=== PATIENT | male | born 1945 | race Caucasian/White ===

== ENCOUNTER 2017-03-09 17:00 | Inpatient (IN) | payer MEDICARE, OTHER ==
[~2017-03-09] VITALS: Ht 170.2 cm; Wt 82.1 kg
[~2017-03-09 17:00] MED LIST: ASPI325T PO; METF500T4 PO; SITA25 PO
[2017-03-09 19:00] VITALS: BP 151/89
[2017-03-09] MEDS ORDERED: DOCUSATE SODIUM 283 MG/5 ML MINI-ENEMA PR PRN (19:00)
[2017-03-09] MEDS ORDERED: DEXTROSE 50%-WATER 25 GM/50 ML SYRINGE IVP PRN ×2 (19:00→22:45)
[2017-03-09 20:24] LABS: ADD UA MICROSCOPIC YES; APPEARANCE,URINE CLEAR (CLEAR); GLUCOSE, URINE (UA) >=1000 mg/dL (NEGATIVE); KETONES,URINE NEGATIVE (NEGATIVE); LEUKOCYTE ESTERASE ,URINE NEGATIVE (NEGATIVE); OCCULT BLOOD,URINE NEGATIVE (NEGATIVE); PH,URINE 5.5 (5.0-8.0); PROTEIN,URINE NEGATIVE (NEGATIVE)
[2017-03-09 20:29] LABS: RBC,URINE 0-2 /HPF (0-2); SQUAMOUS EPITHELIAL CELL,UR Rare /LPF (None Seen); WBC,URINE 0-2 /HPF (0-5)
[2017-03-09] MEDS: SENNA 187 MG TABLET PO SCH (21:00)
[2017-03-09] MEDS: DOCUSATE SODIUM 250 MG CAPSULE PO SCH (21:00)
[2017-03-09] MEDS: ATORVASTATIN CALCIUM 20 MG TABLET PO SCH (21:04)
[2017-03-09] MEDS: INSULIN ASPART 100 UNITS/ML SQ PRN (21:09)
[2017-03-09 21:42] LABS: GLUCOSE COMMENT 1 Received Meds; GLUCOSE,POINT OF CARE 202 MG/DL (70-110)
[2017-03-09] MEDS ORDERED: PNEUMOCOCCAL VACCINE POLYVALENT 0.5 ML VIAL [PPSV23] IM ONE (23:15)
[2017-03-10] VITALS: BP 133/80
[2017-03-10 06:03] LABS: GLUCOSE,POINT OF CARE 160 MG/DL (70-110)
[2017-03-10] MEDS: INSULIN ASPART 100 UNITS/ML SQ SCH ×4 (06:30→16:30)
[2017-03-10 07:23] LABS: BASOPHILS % (AUTO) 0.4 % (0.0-2.0); EOSINOPHILS % (AUTO) 3.6 % (1.0-6.0); HEMATOCRIT 40.1 % (41-53); LYMPHOCYTES # (AUTO) 1.6 K/uL (1.0-4.8); LYMPHOCYTES % (AUTO) 25.4 % (22.0-44.0); MEAN CORPUSCULAR HEMOGLOBIN 30.7 pg (26.0-34.0); MEAN CORPUSCULAR HGB CONC 34.8 G/dL (31.0-37.0); MEAN CORPUSCULAR VOLUME 88 fL (80-100); MONOCYTES # (AUTO) 0.5 K/uL (0.1-1.0); MONOCYTES % (AUTO) 8.5 % (2.0-9.0); NEUTROPHILS # (AUTO) 3.9 K/uL (1.8-7.7); NEUTROPHILS % (AUTO) 62.1 % (40.0-70.0); PLATELET COUNT (AUTO) 157 K/uL (150-450); RED BLOOD CELL COUNT(AUTO) 4.55 MIL/uL (4.50-5.90); RED CELL DISTRIBUTION WIDTH 13.2 % (11.5-14.5); WHITE BLOOD COUNT (AUTO) 6.4 K/uL (4.5-11.0)
[2017-03-10 07:45] VITALS: BP 113/67
[2017-03-10 07:45] LABS: ALANINE AMINOTRANSFERASE 26 U/L (12-78); ALBUMIN 3.7 g/dL (3.4-5.0); ANION GAP 9 mmol/L (8-16); ASPARTATE AMINOTRANSFERASE 14 U/L (15-37); BILIRUBIN,TOTAL 0.7 mg/dL (0.1-1.0); CARBON DIOXIDE 25 mmol/L (22-29); CHLORIDE 102 mmol/L (98-107); CREATININE 0.99 mg/dL (0.60-1.30); GLOMERULAR FILTR. RATE CALC > 60 mL/min (>60); POTASSIUM 3.8 mmol/L (3.5-5.1); SODIUM SERUM 136 mmol/L (136-145); TOTAL PROTEIN, SERUM 7.1 g/dL (6.4-8.2); UREA NITROGEN, BLOOD 16 mg/dL (7-18)
[2017-03-10] MEDS: ASPIRIN 81 MG CHEWABLE TABLET PO SCH (09:27)
[2017-03-10] MEDS: ACETAMINOPHEN 325 MG TABLET PO PRN (11:36)
[2017-03-10 14:27] LABS: GLUCOSE,POINT OF CARE 179 MG/DL (70-110)
[2017-03-10 15:00] VITALS: BP 104/88
[2017-03-10] MEDS: ENOXAPARIN SODIUM 40 MG/0.4 ML PF SYRINGE SQ SCH (16:21)
[2017-03-10] MEDS: INSULIN ASPART 100 UNITS/ML SQ PRN (18:46)
[2017-03-10] MEDS: ATORVASTATIN CALCIUM 20 MG TABLET PO SCH (20:40)
[2017-03-10] MEDS: DOCUSATE SODIUM 250 MG CAPSULE PO SCH (20:40)
[2017-03-10] MEDS: SENNA 187 MG TABLET PO SCH (20:40)
[2017-03-10] MEDS ORDERED: INSULIN ASPART 100 UNITS/ML SQ SCH (21:00)
[2017-03-11] MEDS ORDERED: ATOR40TA28 PO (00:52)
[2017-03-11] MEDS ORDERED: SITA100 PO (00:52)
[2017-03-11] MEDS ORDERED: METO50 PO (00:52)
[2017-03-11] MEDS ORDERED: TURMERIC CURCUMIN PO (00:52)
[2017-03-11 01:00] VITALS: BP 135/74
[2017-03-11] MEDS: INSULIN ASPART 100 UNITS/ML SQ SCH ×2 (07:00→11:30)
[2017-03-11 07:55] VITALS: BP 133/76
[2017-03-11] MEDS: ASPIRIN 81 MG CHEWABLE TABLET PO SCH (08:08)
[2017-03-11] MEDS: ENOXAPARIN SODIUM 40 MG/0.4 ML PF SYRINGE SQ SCH (08:09)
[2017-03-11] MEDS: INSULIN ASPART 100 UNITS/ML SQ PRN ×4 (08:18→21:52)
[2017-03-11] MEDS: ACETAMINOPHEN 325 MG TABLET PO PRN (08:23)
[2017-03-11 10:51] LABS: GLUCOSE COMMENT 1 Received Meds; GLUCOSE,POINT OF CARE 202 MG/DL (70-110)
[2017-03-11 10:55] LABS: GLUCOSE COMMENT 1 Received Meds; GLUCOSE,POINT OF CARE 240 MG/DL (70-110)
[2017-03-11 11:01] LABS: GLUCOSE,POINT OF CARE 173 MG/DL (70-110)
[2017-03-11 12:22] LABS: GLUCOSE,POINT OF CARE 219 MG/DL (70-110)
[2017-03-11] MEDS ORDERED: DEXTROSE 50%-WATER 25 GM/50 ML SYRINGE IVP PRN (13:30)
[2017-03-11 15:00] VITALS: BP 123/80
[2017-03-11] MEDS: MetFORMIN HCL 500 MG TABLET PO SCH (18:24)
[2017-03-11] MEDS: SENNA 187 MG TABLET PO SCH ×2 (21:00→21:42)
[2017-03-11] MEDS: DOCUSATE SODIUM 250 MG CAPSULE PO SCH (21:42)
[2017-03-11] MEDS: ATORVASTATIN CALCIUM 20 MG TABLET PO SCH (21:42)
[2017-03-11 21:43] LABS: GLUCOSE,POINT OF CARE 200 MG/DL (70-110)
[2017-03-11 22:11] LABS: GLUCOSE,POINT OF CARE 166 MG/DL (70-110)
[2017-03-11 23:39] VITALS: BP 133/76
[2017-03-12 06:17] LABS: GLUCOSE,POINT OF CARE 165 MG/DL (70-110)
[2017-03-12] MEDS: ACETAMINOPHEN 325 MG TABLET PO PRN (07:57)
[2017-03-12] MEDS: ENOXAPARIN SODIUM 40 MG/0.4 ML PF SYRINGE SQ SCH (07:57)
[2017-03-12] MEDS: ASPIRIN 81 MG CHEWABLE TABLET PO SCH (07:58)
[2017-03-12] MEDS: SitaGLIPtin PHOSPHATE 50 MG TABLET PO SCH (07:58)
[2017-03-12] MEDS: MetFORMIN HCL 500 MG TABLET PO SCH ×2 (07:58→17:46)
[2017-03-12] MEDS: INSULIN ASPART 100 UNITS/ML SQ PRN ×4 (08:05→20:21)
[2017-03-12 08:10] VITALS: BP 119/67
[2017-03-12 12:28] LABS: GLUCOSE COMMENT 1 Received Meds; GLUCOSE,POINT OF CARE 168 MG/DL (70-110)
[2017-03-12 16:05] VITALS: BP 136/73
[2017-03-12 18:17] LABS: GLUCOSE,POINT OF CARE 169 MG/DL (70-110)
[2017-03-12] MEDS: ATORVASTATIN CALCIUM 20 MG TABLET PO SCH (20:17)
[2017-03-12] MEDS: DOCUSATE SODIUM 250 MG CAPSULE PO SCH (20:23)
[2017-03-12 22:13] LABS: GLUCOSE,POINT OF CARE 203 MG/DL (70-110)
[2017-03-12 23:00] VITALS: BP 134/76
[2017-03-13 06:13] LABS: GLUCOSE,POINT OF CARE 173 MG/DL (70-110)
[2017-03-13 07:36] VITALS: BP 125/73
[2017-03-13] MEDS: MetFORMIN HCL 500 MG TABLET PO SCH ×2 (07:39→17:36)
[2017-03-13] MEDS: ASPIRIN 81 MG CHEWABLE TABLET PO SCH (07:57)
[2017-03-13] MEDS: SitaGLIPtin PHOSPHATE 50 MG TABLET PO SCH (07:57)
[2017-03-13] MEDS: ENOXAPARIN SODIUM 40 MG/0.4 ML PF SYRINGE SQ SCH (07:57)
[2017-03-13] MEDS: INSULIN ASPART 100 UNITS/ML SQ PRN ×3 (08:02→20:41)
[2017-03-13 12:37] LABS: GLUCOSE,POINT OF CARE 140 MG/DL (70-110)
[2017-03-13 15:25] VITALS: BP 130/71
[2017-03-13 16:58] LABS: GLUCOSE,POINT OF CARE 161 MG/DL (70-110)
[2017-03-13] MEDS: DOCUSATE SODIUM 250 MG CAPSULE PO SCH ×2 (20:35→20:41)
[2017-03-13] MEDS: ATORVASTATIN CALCIUM 20 MG TABLET PO SCH (20:35)
[2017-03-13 21:02] LABS: GLUCOSE COMMENT 1 Received Meds; GLUCOSE,POINT OF CARE 190 MG/DL (70-110)
[2017-03-14 00:09] VITALS: BP 128/80
[2017-03-14 05:52] LABS: GLUCOSE,POINT OF CARE 150 MG/DL (70-110)
[2017-03-14 07:51] VITALS: BP 132/82
[2017-03-14] MEDS: ASPIRIN 81 MG CHEWABLE TABLET PO SCH (08:04)
[2017-03-14] MEDS: MetFORMIN HCL 500 MG TABLET PO SCH ×2 (08:04→17:07)
[2017-03-14] MEDS: ENOXAPARIN SODIUM 40 MG/0.4 ML PF SYRINGE SQ SCH (08:05)
[2017-03-14] MEDS: SitaGLIPtin PHOSPHATE 50 MG TABLET PO SCH (08:05)
[2017-03-14] MEDS: INSULIN ASPART 100 UNITS/ML SQ PRN ×3 (08:08→20:58)
[2017-03-14 14:02] LABS: GLUCOSE,POINT OF CARE 117 MG/DL (70-110)
[2017-03-14 15:41] VITALS: BP 125/65
[2017-03-14] MEDS: DOCUSATE SODIUM 250 MG CAPSULE PO SCH ×3 (20:51→21:00)
[2017-03-14] MEDS: ATORVASTATIN CALCIUM 20 MG TABLET PO SCH (20:51)
[2017-03-14 23:02] LABS: GLUCOSE COMMENT 1 Received Meds; GLUCOSE,POINT OF CARE 170 MG/DL (70-110)
[2017-03-14 23:02] LABS: GLUCOSE COMMENT 1 Received Meds; GLUCOSE,POINT OF CARE 148 MG/DL (70-110)
[2017-03-15 00:05] VITALS: BP 133/77
[2017-03-15 06:02] LABS: GLUCOSE,POINT OF CARE 128 MG/DL (70-110)
[2017-03-15 07:05] VITALS: BP 129/78
[2017-03-15] MEDS: MetFORMIN HCL 500 MG TABLET PO SCH ×2 (07:28→16:51)
[2017-03-15] MEDS: ASPIRIN 81 MG CHEWABLE TABLET PO SCH (08:37)
[2017-03-15] MEDS: SitaGLIPtin PHOSPHATE 50 MG TABLET PO SCH (08:37)
[2017-03-15] MEDS: ENOXAPARIN SODIUM 40 MG/0.4 ML PF SYRINGE SQ SCH (08:37)
[2017-03-15] MEDS: INSULIN ASPART 100 UNITS/ML SQ PRN ×2 (12:50→17:56)
[2017-03-15 12:52] LABS: GLUCOSE,POINT OF CARE 163 MG/DL (70-110)
[2017-03-15 15:00] VITALS: BP 113/67
[2017-03-15 17:17] LABS: GLUCOSE COMMENT 1 Received Meds; GLUCOSE,POINT OF CARE 192 MG/DL (70-110)
[2017-03-15] MEDS: ATORVASTATIN CALCIUM 20 MG TABLET PO SCH (20:21)
[2017-03-15] MEDS: DOCUSATE SODIUM 250 MG CAPSULE PO SCH (20:21)
[2017-03-15 20:32] LABS: GLUCOSE,POINT OF CARE 135 MG/DL (70-110)
[2017-03-16 06:15] VITALS: BP 139/76
[2017-03-16 06:22] LABS: GLUCOSE,POINT OF CARE 149 MG/DL (70-110)
[2017-03-16 07:30] VITALS: BP 136/84
[2017-03-16] MEDS: MetFORMIN HCL 500 MG TABLET PO SCH ×2 (08:06→17:24)
[2017-03-16] MEDS: SitaGLIPtin PHOSPHATE 50 MG TABLET PO SCH (08:06)
[2017-03-16] MEDS: ENOXAPARIN SODIUM 40 MG/0.4 ML PF SYRINGE SQ SCH (08:06)
[2017-03-16] MEDS: ASPIRIN 81 MG CHEWABLE TABLET PO SCH (08:06)
[2017-03-16] MEDS: INSULIN ASPART 100 UNITS/ML SQ PRN ×3 (08:13→21:09)
[2017-03-16 12:46] LABS: GLUCOSE,POINT OF CARE 122 MG/DL (70-110)
[2017-03-16 15:53] VITALS: BP 139/74
[2017-03-16 18:52] LABS: GLUCOSE COMMENT 1 Received Meds; GLUCOSE,POINT OF CARE 194 MG/DL (70-110)
[2017-03-16] MEDS: DOCUSATE SODIUM 250 MG CAPSULE PO SCH (21:00)
[2017-03-16] MEDS: ATORVASTATIN CALCIUM 20 MG TABLET PO SCH (21:05)
[2017-03-16 21:38] LABS: GLUCOSE COMMENT 1 Received Meds; GLUCOSE,POINT OF CARE 154 MG/DL (70-110)
[2017-03-16 23:26] VITALS: BP 140/82
[2017-03-17 06:18] LABS: GLUCOSE,POINT OF CARE 156 MG/DL (70-110)
[2017-03-17 07:29] VITALS: BP 127/74
[2017-03-17] MEDS: MetFORMIN HCL 500 MG TABLET PO SCH ×2 (08:33→17:55)
[2017-03-17] MEDS: SitaGLIPtin PHOSPHATE 50 MG TABLET PO SCH (08:33)
[2017-03-17] MEDS: ENOXAPARIN SODIUM 40 MG/0.4 ML PF SYRINGE SQ SCH (08:33)
[2017-03-17] MEDS: ASPIRIN 81 MG CHEWABLE TABLET PO SCH (08:33)
[2017-03-17] MEDS: INSULIN ASPART 100 UNITS/ML SQ PRN ×3 (09:27→20:56)
[2017-03-17 12:27] LABS: GLUCOSE,POINT OF CARE 130 MG/DL (70-110)
[2017-03-17 16:10] VITALS: BP 121/69
[2017-03-17 17:47] LABS: GLUCOSE,POINT OF CARE 166 MG/DL (70-110)
[2017-03-17] MEDS: DOCUSATE SODIUM 250 MG CAPSULE PO SCH ×2 (20:54→21:00)
[2017-03-17] MEDS: ATORVASTATIN CALCIUM 20 MG TABLET PO SCH (20:54)
[2017-03-17 21:37] LABS: GLUCOSE,POINT OF CARE 147 MG/DL (70-110)
[2017-03-18 00:35] VITALS: BP 108/63
[2017-03-18 06:27] LABS: GLUCOSE,POINT OF CARE 144 MG/DL (70-110)
[2017-03-18 07:34] VITALS: BP 141/85
[2017-03-18] MEDS: SitaGLIPtin PHOSPHATE 50 MG TABLET PO SCH (08:15)
[2017-03-18] MEDS: MetFORMIN HCL 500 MG TABLET PO SCH ×2 (08:15→17:54)
[2017-03-18] MEDS: ENOXAPARIN SODIUM 40 MG/0.4 ML PF SYRINGE SQ SCH (08:15)
[2017-03-18] MEDS: ASPIRIN 81 MG CHEWABLE TABLET PO SCH (08:15)
[2017-03-18] MEDS: INSULIN ASPART 100 UNITS/ML SQ PRN ×3 (08:16→20:30)
[2017-03-18 12:18] LABS: GLUCOSE,POINT OF CARE 124 MG/DL (70-110)
[2017-03-18] MEDS: TURMERIC CURCUMIN 500 MG PO SCH ×2 (12:35→20:28)
[2017-03-18] MEDS: OCUSIGHT PO SCH (12:36)
[2017-03-18] MEDS: CENTRUM SILVER TABLET PO SCH (12:36)
[2017-03-18 15:00] VITALS: BP 134/68
[2017-03-18 17:33] LABS: GLUCOSE COMMENT 1 Received Meds; GLUCOSE,POINT OF CARE 199 MG/DL (70-110)
[2017-03-18] MEDS: ATORVASTATIN CALCIUM 20 MG TABLET PO SCH (20:28)
[2017-03-18] MEDS: DOCUSATE SODIUM 250 MG CAPSULE PO SCH (20:30)
[2017-03-18 21:12] LABS: GLUCOSE,POINT OF CARE 161 MG/DL (70-110)
[2017-03-19 05:00] VITALS: BP 131/69
[2017-03-19 05:42] LABS: GLUCOSE,POINT OF CARE 153 MG/DL (70-110)
[2017-03-19 07:53] VITALS: BP 127/77
[2017-03-19] MEDS: SitaGLIPtin PHOSPHATE 50 MG TABLET PO SCH (08:01)
[2017-03-19] MEDS: CENTRUM SILVER TABLET PO SCH (08:01)
[2017-03-19] MEDS: TURMERIC CURCUMIN 500 MG PO SCH ×2 (08:01→20:16)
[2017-03-19] MEDS: OCUSIGHT PO SCH (08:01)
[2017-03-19] MEDS: ENOXAPARIN SODIUM 40 MG/0.4 ML PF SYRINGE SQ SCH (08:02)
[2017-03-19] MEDS: MetFORMIN HCL 500 MG TABLET PO SCH ×2 (08:02→16:03)
[2017-03-19] MEDS: ASPIRIN 81 MG CHEWABLE TABLET PO SCH (08:02)
[2017-03-19] MEDS ORDERED: CARB200T5 PO (10:08)
[2017-03-19] MEDS: INSULIN ASPART 100 UNITS/ML SQ PRN ×3 (12:29→20:20)
[2017-03-19 15:00] VITALS: BP 122/71
[2017-03-19 17:07] LABS: GLUCOSE COMMENT 1 Received Meds; GLUCOSE,POINT OF CARE 177 MG/DL (70-110)
[2017-03-19] MEDS ORDERED: *NON-FORMULARY MED [ENTER DRUG, DOSE, FREQ IN COMMENTS] CLINICAL ONE ×2 (19:15)
[2017-03-19] MEDS ORDERED: TURM500C3 PO (19:21)
[2017-03-19] MEDS: ATORVASTATIN CALCIUM 20 MG TABLET PO SCH (20:16)
[2017-03-19 21:22] LABS: GLUCOSE COMMENT 1 Received Meds; GLUCOSE,POINT OF CARE 201 MG/DL (70-110)
[2017-03-20 05:24] VITALS: BP 136/74
[2017-03-20] MEDS: CARBAMAZEPINE 200 MG PO PRN (05:42)
[2017-03-20 07:02] LABS: GLUCOSE COMMENT 1 Received Meds; GLUCOSE,POINT OF CARE 145 MG/DL (70-110)
[2017-03-20 07:02] LABS: GLUCOSE,POINT OF CARE 174 MG/DL (70-110)
[2017-03-20 07:40] VITALS: BP 128/71
[2017-03-20] MEDS: TURMERIC CURCUMIN 500 MG PO SCH ×2 (08:06→20:00)
[2017-03-20] MEDS: MetFORMIN HCL 500 MG TABLET PO SCH ×2 (08:06→17:17)
[2017-03-20] MEDS: SitaGLIPtin PHOSPHATE 50 MG TABLET PO SCH (08:06)
[2017-03-20] MEDS: ASPIRIN 81 MG CHEWABLE TABLET PO SCH (08:06)
[2017-03-20] MEDS: ENOXAPARIN SODIUM 40 MG/0.4 ML PF SYRINGE SQ SCH (08:06)
[2017-03-20] MEDS: OCUSIGHT PO SCH (08:06)
[2017-03-20] MEDS: CENTRUM SILVER TABLET PO SCH (08:06)
[2017-03-20] MEDS: INSULIN ASPART 100 UNITS/ML SQ PRN ×3 (08:16→20:50)
[2017-03-20 12:38] LABS: GLUCOSE COMMENT 1 Received Meds; GLUCOSE,POINT OF CARE 181 MG/DL (70-110)
[2017-03-20 15:30] VITALS: BP 135/82
[2017-03-20 18:07] LABS: GLUCOSE,POINT OF CARE 117 MG/DL (70-110)
[2017-03-20] MEDS ORDERED: CARB200T6 PO (19:55)
[2017-03-20] MEDS: ATORVASTATIN CALCIUM 20 MG TABLET PO SCH (20:01)
[2017-03-20 20:17] LABS: GLUCOSE COMMENT 1 Received Meds; GLUCOSE,POINT OF CARE 188 MG/DL (70-110)
[2017-03-21 05:30] VITALS: BP 129/69
[2017-03-21 06:07] LABS: GLUCOSE,POINT OF CARE 151 MG/DL (70-110)
[2017-03-21 07:04] VITALS: BP 128/74
[2017-03-21] MEDS: MetFORMIN HCL 500 MG TABLET PO SCH ×2 (07:12→17:52)
[2017-03-21] MEDS: INSULIN ASPART 100 UNITS/ML SQ PRN ×4 (08:35→20:24)
[2017-03-21] MEDS: TURMERIC CURCUMIN 500 MG PO SCH ×2 (08:36→20:15)
[2017-03-21] MEDS: CENTRUM SILVER TABLET PO SCH (08:36)
[2017-03-21] MEDS: OCUSIGHT PO SCH (08:36)
[2017-03-21] MEDS: ENOXAPARIN SODIUM 40 MG/0.4 ML PF SYRINGE SQ SCH (08:36)
[2017-03-21] MEDS: SitaGLIPtin PHOSPHATE 50 MG TABLET PO SCH (08:36)
[2017-03-21] MEDS: ASPIRIN 81 MG CHEWABLE TABLET PO SCH (08:37)
[2017-03-21 12:23] LABS: GLUCOSE,POINT OF CARE 147 MG/DL (70-110)
[2017-03-21 16:45] VITALS: BP 137/74
[2017-03-21] MEDS: ATORVASTATIN CALCIUM 20 MG TABLET PO SCH (20:15)
[2017-03-21 21:17] LABS: GLUCOSE,POINT OF CARE 194 MG/DL (70-110)
[2017-03-21 21:17] LABS: GLUCOSE,POINT OF CARE 165 MG/DL (70-110)
[2017-03-22 06:00] VITALS: BP 128/73
[2017-03-22 06:32] LABS: GLUCOSE,POINT OF CARE 144 MG/DL (70-110)
[2017-03-22 07:30] VITALS: BP 136/80
[2017-03-22] MEDS: MetFORMIN HCL 500 MG TABLET PO SCH ×2 (08:13→17:28)
[2017-03-22] MEDS: CENTRUM SILVER TABLET PO SCH (08:13)
[2017-03-22] MEDS: OCUSIGHT PO SCH (08:13)
[2017-03-22] MEDS: TURMERIC CURCUMIN 500 MG PO SCH ×2 (08:13→20:50)
[2017-03-22] MEDS: SitaGLIPtin PHOSPHATE 50 MG TABLET PO SCH (08:13)
[2017-03-22] MEDS: ASPIRIN 81 MG CHEWABLE TABLET PO SCH (08:14)
[2017-03-22] MEDS: ENOXAPARIN SODIUM 40 MG/0.4 ML PF SYRINGE SQ SCH (08:14)
[2017-03-22] MEDS: INSULIN ASPART 100 UNITS/ML SQ PRN ×2 (08:23→18:01)
[2017-03-22 10:08] LABS: APPEARANCE,URINE CLOUDY (CLEAR); GLUCOSE, URINE (UA) NEGATIVE (NEGATIVE); KETONES,URINE NEGATIVE (NEGATIVE); LEUKOCYTE ESTERASE ,URINE TRACE (NEGATIVE); OCCULT BLOOD,URINE LARGE (NEGATIVE); PH,URINE 5.5 (5.0-8.0); PROTEIN,URINE POS 1+ (NEGATIVE)
[2017-03-22 10:18] LABS: ADD UA MICROSCOPIC YES; RBC,URINE Full Field /HPF (0-2)
[2017-03-22 10:19] LABS: WBC,URINE 0-2 /HPF (0-5)
[2017-03-22 12:37] LABS: GLUCOSE,POINT OF CARE 123 MG/DL (70-110)
[2017-03-22 16:09] VITALS: BP 138/74
[2017-03-22 17:37] LABS: GLUCOSE COMMENT 1 Received Meds; GLUCOSE,POINT OF CARE 224 MG/DL (70-110)
[2017-03-22 20:43] LABS: GLUCOSE,POINT OF CARE 120 MG/DL (70-110)
[2017-03-22] MEDS: ATORVASTATIN CALCIUM 20 MG TABLET PO SCH (20:50)
[2017-03-23 05:30] VITALS: BP 130/70
[2017-03-23 05:47] LABS: ALANINE AMINOTRANSFERASE 34 U/L (12-78); ALBUMIN 3.6 g/dL (3.4-5.0); ANION GAP 6 mmol/L (8-16); ASPARTATE AMINOTRANSFERASE 17 U/L (15-37); BILIRUBIN,TOTAL 0.4 mg/dL (0.1-1.0); CARBON DIOXIDE 28 mmol/L (22-29); CHLORIDE 104 mmol/L (98-107); CREATININE 1.08 mg/dL (0.60-1.30); GLOMERULAR FILTR. RATE CALC > 60 mL/min (>60); POTASSIUM 4.1 mmol/L (3.5-5.1); SODIUM SERUM 138 mmol/L (136-145); TOTAL PROTEIN, SERUM 6.7 g/dL (6.4-8.2); UREA NITROGEN, BLOOD 19 mg/dL (7-18)
[2017-03-23 05:50] LABS: BASOPHILS # (AUTO) 0.02 K/uL (0.00-0.20); BASOPHILS % (AUTO) 0.4 % (0.0-2.0); EOSINOPHILS # (AUTO) 0.26 K/uL (0.00-0.70); EOSINOPHILS % (AUTO) 4.32 % (1.0-6.0); HEMATOCRIT 38.1 % (41-53); LYMPHOCYTES # (AUTO) 2.1 K/uL (1.0-4.8); LYMPHOCYTES % (AUTO) 35.1 % (22.0-44.0); MEAN CORPUSCULAR HEMOGLOBIN 30.6 pg (26.0-34.0); MEAN CORPUSCULAR HGB CONC 34.2 G/dL (31.0-37.0); MEAN CORPUSCULAR VOLUME 90 fL (80-100); MONOCYTES # (AUTO) 0.5 K/uL (0.1-1.0); MONOCYTES % (AUTO) 7.6 % (2.0-9.0); NEUTROPHILS # (AUTO) 3.2 K/uL (1.8-7.7); NEUTROPHILS % (AUTO) 52.6 % (40.0-70.0); PLATELET COUNT (AUTO) 156 K/uL (150-450); RED BLOOD CELL COUNT(AUTO) 4.25 MIL/uL (4.50-5.90); RED CELL DISTRIBUTION WIDTH 12.9 % (11.5-14.5)
[2017-03-23 06:07] LABS: GLUCOSE,POINT OF CARE 151 MG/DL (70-110)
[2017-03-23 07:15] VITALS: BP 125/74
[2017-03-23 07:28] LABS: APPEARANCE,URINE CLEAR (CLEAR); GLUCOSE, URINE (UA) NEGATIVE (NEGATIVE); KETONES,URINE NEGATIVE (NEGATIVE); LEUKOCYTE ESTERASE ,URINE NEGATIVE (NEGATIVE); OCCULT BLOOD,URINE NEGATIVE (NEGATIVE); PH,URINE 5.5 (5.0-8.0); PROTEIN,URINE NEGATIVE (NEGATIVE)
[2017-03-23 07:29] LABS: RBC,URINE None Seen /HPF (0-2); WBC,URINE None Seen /HPF (0-5)
[2017-03-23] MEDS: TURMERIC CURCUMIN 500 MG PO SCH ×2 (08:11→21:30)
[2017-03-23] MEDS: CENTRUM SILVER TABLET PO SCH (08:11)
[2017-03-23] MEDS: MetFORMIN HCL 500 MG TABLET PO SCH ×2 (08:12→17:21)
[2017-03-23] MEDS: ASPIRIN 81 MG CHEWABLE TABLET PO SCH (08:12)
[2017-03-23] MEDS: SitaGLIPtin PHOSPHATE 50 MG TABLET PO SCH (08:12)
[2017-03-23] MEDS: OCUSIGHT PO SCH (08:13)
[2017-03-23] MEDS: INSULIN ASPART 100 UNITS/ML SQ PRN ×3 (08:22→17:45)
[2017-03-23 11:58] LABS: GLUCOSE,POINT OF CARE 143 MG/DL (70-110)
[2017-03-23 15:27] VITALS: BP 123/81
[2017-03-23 17:42] LABS: GLUCOSE COMMENT 1 Received Meds; GLUCOSE,POINT OF CARE 158 MG/DL (70-110)
[2017-03-23 20:58] LABS: GLUCOSE,POINT OF CARE 140 MG/DL (70-110)
[2017-03-23] MEDS: ATORVASTATIN CALCIUM 20 MG TABLET PO SCH (21:30)
[2017-03-24 00:48] VITALS: BP 130/68
[2017-03-24 05:52] LABS: GLUCOSE,POINT OF CARE 141 MG/DL (70-110)
[2017-03-24] MEDS: CARBAMAZEPINE 200 MG PO PRN (05:56)
[2017-03-24 06:45] LABS: INR 1.1 (0.9-1.1); PROTHROMBIN TIME 11.1 SEC (9.4-11.6)
[2017-03-24 07:05] VITALS: BP 135/68
[2017-03-24] MEDS: CENTRUM SILVER TABLET PO SCH (08:24)
[2017-03-24] MEDS: MetFORMIN HCL 500 MG TABLET PO SCH (08:24)
[2017-03-24] MEDS: OCUSIGHT PO SCH (08:24)
[2017-03-24] MEDS: TURMERIC CURCUMIN 500 MG PO SCH (08:24)
[2017-03-24] MEDS: SitaGLIPtin PHOSPHATE 50 MG TABLET PO SCH (08:25)
[2017-03-24] MEDS: ASPIRIN 81 MG CHEWABLE TABLET PO SCH (08:25)
[2017-03-24] MEDS ORDERED: ASPI81 PO (10:38)
[2017-03-24] MEDS ORDERED: SITA50 PO (10:38)
[2017-03-24] MEDS ORDERED: ATOR20TA65 PO (10:38)
[2017-03-24] MEDS ORDERED: METF500T PO (10:38)
[2017-03-24] MEDS ORDERED: FOLI1TAB15 PO (10:38)
[2017-03-24 12:37] LABS: GLUCOSE,POINT OF CARE 128 MG/DL (70-110)
== END 2017-03-24 16:00 | disposition home or self-care (01) | DRG 56 ==
LOC: 2WR 18:40
PROVIDERS: ADMIT Physical Medicine & Rehabilitation; ATTEND Physical Medicine & Rehabilitation
DX: I69.351 Hemiplegia and hemiparesis following cerebral infarction affecting right dominant side (principal); I63.9 Cerebral infarction, unspecified; D69.6 Thrombocytopenia, unspecified; E78.5 Hyperlipidemia, unspecified; G50.0 Trigeminal neuralgia; I10 Essential (primary) hypertension; R45.87 Impulsiveness; G50.8 Other disorders of trigeminal nerve; E11.40 Type 2 diabetes mellitus with diabetic neuropathy, unspecified; D64.9 Anemia, unspecified; I25.10 Atherosclerotic heart disease of native coronary artery without angina pectoris; K59.00 Constipation, unspecified; N20.0 Calculus of kidney; N40.0 Benign prostatic hyperplasia without lower urinary tract symptoms; R31.0 Gross hematuria; Z82.5 Family history of asthma and other chronic lower respiratory diseases; Z95.1 Presence of aortocoronary bypass graft; Z98.1 Arthrodesis status; Z28.21 Immunization not carried out because of patient refusal
CPT/HCPCS: 82962; 84153; 87081; 92523; 94760; 94761; 97110; 97112; 97116; 97150; 97162; 97167; 97530; 97535; 99366; J1650; J1815